=== PATIENT | male | born 1955 | race Two or more races ===

== ENCOUNTER 2017-06-15 20:01 | Emergency (ER) | payer MEDICAID ==
[~2017-06-15] VITALS: Ht 175.3 cm; Wt 103.0 kg
[2017-06-15 20:10] VITALS: BP 131/63
== END 2017-06-15 21:30 | disposition left against medical advice (07) ==
LOC: ER 20:15
DX: Z53.21 Procedure and treatment not carried out due to patient leaving prior to being seen by health care provider (principal)

== ENCOUNTER 2017-06-16 09:25 | Emergency (ER) | payer MEDICAID ==
[~2017-06-16] VITALS: Ht 175.3 cm; Wt 102.0 kg
[2017-06-16] MEDS ORDERED: BACITRACIN ZINC OINT UDPKT TOP ONE (10:45)
[2017-06-16] MEDS ORDERED: LIDOCAINE HCL 1% 20ML VIAL (Pyxis) INJ INFIL ONE (12:00)
[2017-06-16] MEDS ORDERED: LIDOCAINE HCL/PF 1% 10 MG/ML 5ML VIAL IJ ONE (12:30)
[2017-06-16] MEDS ORDERED: HYDROCODONE/ACETAMINOPHEN 5/325MG TABLET PO ONE (12:45)
[2017-06-16 12:55] VITALS: BP 135/56
== END 2017-06-16 13:00 | disposition home or self-care (01) ==
LOC: ER 11:47
DX: S61.412A Laceration without foreign body of left hand, initial encounter (principal); V00.831A Fall from motorized mobility scooter, initial encounter; Y92.9 Unspecified place or not applicable
CPT/HCPCS: 12001; 73130; 99284; J3490